=== PATIENT | female | born 1990 | race Caucasian/White ===

== ENCOUNTER → 2019-04-23 | Outpatient (CLI) | payer MEDICAID ==
--- NOTE | 2019-04-23 16:47 | Diagnostic Imaging Report ---
INDICATION: survey. TECHNIQUE: Multiple real-time grayscale images were obtained over the gravid uterus. COMPARISON: None. FINDINGS: There is a single live fetus in a transverse presentation, head to the maternal right. Heart rate was recorded at 140 BPM. Placenta is anterior. There appears to be complete placenta previa at this time. Amniotic fluid volume is normal. Cervical length is 6.3 cm. The kidneys, bladder, and stomach are unremarkable. The brain is unremarkable. There is a four-chamber heart. There is a three-vessel cord with normal insertion. The spine is unremarkable. Biometrical measurements are as follows: Biparietal 4.27 cm, age 19 weeks 0 days. Head circumference 15.52 cm, age 18 weeks 4 days. Abdominal circumference 12.98 cm, age 18 weeks 4 days. Femur length 3.17 cm, age 19 weeks 6 days. Sonographic estimate age: 19 weeks 0 days. Sonographic estimated date of delivery: 09/17/19. Estimated Weight: 273 gm (+/- 40 gm). LMP percentile: 20%. heart rate: 140 beats per minute. number: 1 of 1. IMPRESSION: Single live IUP of 19 weeks 0 days gestational age with estimated date of confinement sonographically of 09/17/2019. No abnormalities are seen. Note is made of complete placenta previa. Dictated by: Dictated on workstation # [id number]
== END ==
LOC: RAD 15:11
PROVIDERS: ATTEND Nurse Practitioner Women's Health
DX: Z36.9 Encounter for antenatal screening, unspecified (principal); Z3A.19 19 weeks gestation of pregnancy
CPT/HCPCS: 76805

== ENCOUNTER → 2019-05-15 | Outpatient (CLI) | payer MEDICAID ==
--- NOTE | 2019-05-15 15:41 | Diagnostic Imaging Report ---
INDICATION: Complete placenta previa. TECHNIQUE: Multiple real-time grayscale images were obtained over the gravid uterus. COMPARISON: 04/23/2019. FINDINGS: There is a single live fetus in a cephalic presentation. heart rate was recorded at 140 bpm. Placenta is anterior. Placental tip is approximate 5.8 cm from the internal cervical os. No previa is seen on today's study. Amniotic fluid volume appears to be unremarkable. IMPRESSION: No evidence of placenta previa on today's study. Dictated by: Dictated on workstation # [id number]
== END ==
LOC: RAD 13:50
PROVIDERS: ATTEND Obstetrics & Gynecology
DX: O44.02 Complete placenta previa NOS or without hemorrhage, second trimester (principal); Z98.891 History of uterine scar from previous surgery
CPT/HCPCS: 76816

== ENCOUNTER → 2019-07-25 | Outpatient (CLI) | payer MEDICAID ==
--- NOTE | 2019-07-25 11:24 | Diagnostic Imaging Report ---
INDICATION: Gestational diabetes. TECHNIQUE: Multiple real-time grayscale images were obtained over the gravid uterus. COMPARISON: 05/15/2019. FINDINGS: There is a single live fetus in a cephalic presentation. heart rate was recorded at 136 bpm. Placenta is anterior. Amniotic fluid index is 19.7 cm. A biophysical profile was performed with normal score of 8 out of 8. Biometrical measurements are as follows: Biparietal 8.66 cm, age 35 weeks 0 days. Head circumference 29.87 cm, age 33 weeks 1 days. Abdominal circumference 28.94 cm, age 33 weeks 0 days. Femur length 6.41 cm, age 33 weeks 1 days. Sonographic estimate age: 33 weeks 4 days. Sonographic estimated date of delivery: 09/08/2019. Estimated Weight: 2138 gm (+/- 312 gm). LMP percentile: 51%. heart rate: 136 beats per minute. number: 1 of 1. IMPRESSION: Single live IUP approximately 33-34 weeks gestational age demonstrating normal interval growth when compared with prior exam. No complicating features are detected. Dictated by: Dictated on workstation # [id number]
== END ==
LOC: RAD 10:09
PROVIDERS: ATTEND Obstetrics & Gynecology
DX: O24.410 Gestational diabetes mellitus in pregnancy, diet controlled (principal); Z3A.33 33 weeks gestation of pregnancy
CPT/HCPCS: 76805; 76819

== ENCOUNTER 2019-09-03 05:41 | Outpatient (RCR) | payer MEDICAID ==
[~2019-09-03] VITALS: Ht 149.9 cm; Wt 85.0 kg
[~2019-09-03 05:41] MED LIST: METF-397 PO; PNV1TABL81 PO
[2019-09-06] MEDS ORDERED: OXYC5TAB96 PO (16:42)
[2019-09-06] MEDS ORDERED: IBUP-844 PO (16:42)
[2019-09-06] MEDS ORDERED: ACET-93 PO (16:42)
[2019-09-06] MEDS ORDERED: FERR-84 PO (16:42)
== END 2019-09-03 10:34 | disposition home or self-care (01) ==
LOC: PREOP 05:41
PROVIDERS: ATTEND Obstetrics & Gynecology
DX: Z01.812 Encounter for preprocedural laboratory examination (principal); Z20.828 Contact with and (suspected) exposure to other viral communicable diseases
CPT/HCPCS: 87635

== ENCOUNTER 2019-09-06 04:03 | Inpatient (IN) | payer MEDICAID ==
[2019-09-06] VITALS (10 sets, daily range): BP systolic 95–129; BP diastolic 57–67
[~2019-09-06] VITALS: Ht 147.3 cm; Wt 87.1 kg
[~2019-09-06 04:03] MED LIST changes: +CITRIC ACID/SOB CIT (BICITRA) 30 ML UDC ONE; +FAMOTIDINE 20MG/2ML IV (PEPCID) ONE; +METOCLOPRAMIDE INJ 10 MG/2 ML (REGLAN) ONE; +WATER (STERILE) FOR INJECTION 10 ML ONE; +ceFAZolin INJECTION 1,000 MG ONE
[2019-09-06] MEDS ORDERED: LACTATED RINGERS 1,000 ML IV PRN (06:28)
[2019-09-06] MEDS ORDERED: CATHETER FLUSH 10 ML SYR IV PRN (06:30)
[2019-09-06] MEDS ORDERED: ceFAZolin INJECTION 1,000 MG in WATER (STERILE) FOR INJECTION 10 ML IV ONE (06:30)
[2019-09-06] MEDS ORDERED: METOCLOPRAMIDE INJ 10 MG/2 ML (REGLAN) IV ONE (06:30)
[2019-09-06] MEDS ORDERED: FAMOTIDINE 20MG/2ML IV (PEPCID) IV ONE (06:30)
[2019-09-06] MEDS ORDERED: CITRIC ACID/SOB CIT (BICITRA) 30 ML UDC PO ONE (06:30)
--- NOTE | 2019-09-06 06:31 | NUR ---
MATEO GAONA presented to unit via ambulation from ED, accompanied by SO, with c/o REPEAT SECTION. MATEO GAONA weighed, gowned, voided, and to bed. EFHM and TOCO applied, VS taken. MATEO GAONA oriented to bed controls, call light, TV, heat, and A/C controls.
[2019-09-06] MEDS ORDERED: OXYTOCIN PRE-MIX DRIP 1,000 ML IV ONE (06:44)
[2019-09-06] MEDS ORDERED: fentaNYL INJECTION 100 MCG/2 ML AMP ONE (06:44)
[2019-09-06] MEDS ORDERED: BUPIVACAINE 0.5% 30 ML (SENSORCAINE) VIAL ONE ×2 (06:45)
[2019-09-06] MEDS ORDERED: BUPIVACAINE 0.25% 30 ML (SENSORCAINE) VIAL ONE (06:46)
[2019-09-06] MEDS: LACTATED RINGERS 1,000 ML IV PRN ×2 (06:53→07:56)
[2019-09-06] MEDS ORDERED: KETOROLAC 30 MG/ML VIAL ONE (06:54)
[2019-09-06] MEDS ORDERED: ONDANSETRON 4 MG/2 ML (SDV) Z0FRAN ONE (06:54)
[2019-09-06 06:58] LABS: BASOPHILS % (AUTO) 0 % (0-10); EOSINOPHILS # (AUTO) 0.1 10^3/uL (0.0-0.3); EOSINOPHILS % (AUTO) 2 % (0-10); HEMATOCRIT 30 % (35-52); HEMOGLOBIN 9.7 G/DL (11.5-16.0); LYMPHOCYTES # (AUTO) 1.7 X 10^3 (1.0-4.0); LYMPHOCYTES % (AUTO) 24 % (12-44); MEAN CORPUSCULAR HEMOGLOBIN 28 PG (25-34); MEAN CORPUSCULAR HGB CONC 32 G/DL (32-36); MEAN CORPUSCULAR VOLUME 86 FL (80-99); MEAN PLATELET VOLUME 12.4 FL (7.4-10.4); MONOCYTES # (AUTO) 0.7 X 10^3 (0.0-1.0); MONOCYTES % (AUTO) 10 % (0-12); NEUTROPHILS # (AUTO) 4.6 X 10^3 (1.8-7.8); NEUTROPHILS % (AUTO) 64 % (42-75); PLATELET COUNT 187 10^3/uL (130-400); RED CELL DISTRIBUTION WIDTH 14.8 % (10.0-14.5); WHITE BLOOD COUNT 7.1 10^3/uL (4.3-11.0)
--- NOTE | 2019-09-06 07:16 | History & Physical-OB ---
OB - Chief Complaint & HPI Date/Time Date of Admission: Date of Admission: Sep 06, 2019 at 06:14 Date seen by a Provider: Sep 06, 2019 Time Seen by a Provider: 07:00 Chief Complaint/History OB-Reason for Admission/Chief: Section Hx : 3 Hx Para: 2 Expected Date of Delivery: Sep 13, 2019 Gestational Age in Weeks: 39 Gestational Age in Days: 0 Indication for : desires repeat , other (Gestational diabetes, A2) Admission Nurse Assessment Rev: Yes History of Labs O+/- Rub I VDRL NR Hep B/C - HIV - GBS + Peds - Elana Other Routine care GDM A2 - fastings elevated for metformin. Controlled with metformin testing has been wnl. Growth adequate Allergies and Home Medications Allergies Coded Allergies: No Known Drug Allergies (Unverified , 08/29/19) Home Medications Metformin HCl 500 Mg Tablet, 500 MG PO BID, (Reported) Pnv No.122/Iron/Folic Acid 1 Each Tablet, 1 EACH PO DAILY, (Reported) Patient Home Medication List Home Medication List Reviewed: Yes OB - History Hx of Present Ultrasounds: Normal mid trimester US Obstetrical Complications: Gestational Diabetes Medical Complications: None Information Induced Hypertension: No Maternal Gestational Diabetes: Yes (Metformin) Hemorrhage: No Obstetrical History Hx : 3 Hx Para: 2 Hx # Term Pregnancies: 2 Hx # Pregnancies: 0 Number of Living Children: 2 Hx Multiple Gestation: No Hx Ectopic : No Hx Stillbirth: No Hx Complication: No Hx Induced Hypertens: No Hx Maternal Gestational Diabet: No Hx Hemorrhage: No Delivery History Hx Dystocia: No Hx Forceps Assisted Delivery: No Hx Vacuum Extraction Assisted: No Hx Placenta Abnormality: No Hx Distress: Yes (Caused first CS) Hx Large For Gestational Age I: No Hx Small for Gestational Age I: No Hx Section: Yes Hx Vaginal Delivery Post C-Sec: No Hx Blood Disorders: No Adverse Rxn to Tranfusion: No Patient Past Medical History NC Social History/Family History Alcohol Use: Denies Use Recreational Drug Use: No Smoking Cessation: Never smoker Significant Family Hx diabetes Immunizations Hepatitis A: No Hepatitis B: Yes Tetanus Booster (TDap): Less than 5yrs (06/20/2019) Rubella: immune RPR/VDRL: Negative GBS Status: Positive HBsAG: Negative OB - Admission Exam Physical Exam Vitals: Vital Signs 09/06/19 09/06/19 06:56 06:59 Temp 36.9 Pulse 95 Resp 18 B/P (MAP) 129/67 (87) Pulse Ox 98 O2 Delivery Room Air HEENT: NCAT Heart: Rhythm Normal Lungs: Clear Abdomen: Gravid Extremities: Edema (2+) Cervical Dilatation: other (declined) Membranes: Intact Heart Rate: 140's Accelerations: Accelerations Present Decelerations: No Decelerations Short Term Variability: Present Penitentiary Variability: Average (6-25) Contractions on Admission: >10 Minutes Apart Labs Laboratory Tests Test 09/06/19 06:35 09/06/19 06:55 Range/Units White Blood Count 7.1 4.3-11.0 10^3/uL Red Blood Count 3.51 L 4.35-5.85 10^6/uL Hemoglobin 9.7 L 11.5-16.0 G/DL Hematocrit 30 L 35-52 % Mean Corpuscular Volume 86 80-99 FL Mean Corpuscular Hemoglobin 28 25-34 PG Mean Corpuscular Hemoglobin Concent 32 32-36 G/DL Red Cell Distribution Width 14.8 H 10.0-14.5 % Platelet Count 187 130-400 10^3/uL Mean Platelet Volume 12.4 H 7.4-10.4 FL Neutrophils (%) (Auto) 64 42-75 % Lymphocytes (%) (Auto) 24 12-44 % Monocytes (%) (Auto) 10 0-12 % Eosinophils (%) (Auto) 2 0-10 % Basophils (%) (Auto) 0 0-10 % Neutrophils # (Auto) 4.6 1.8-7.8 X 10^3 Lymphocytes # (Auto) 1.7 1.0-4.0 X 10^3 Monocytes # (Auto) 0.7 0.0-1.0 X 10^3 Eosinophils # (Auto) 0.1 0.0-0.3 10^3/uL Basophils # (Auto) 0.0 0.0-0.1 10^3/uL Glucose Level 87 70-105 MG/DL OB - Assessment/Plan/Diagnosis Assessment Assessment: section Admission Dx . section 39 weeks gestational diabetes A2 Admission Status: Inpatient Order (span 2 midnights) (post op section) Reason for Inpatient Admission: section Plan Plan: Section Other Plan Risk of bleeding, infection, injury to bowel bladder and ureter. Consents have been signed. Prophylactic antibiotics and SCDs Peds - KEHINDE Isaac DO Sep 06, 2019 07:16
--- OUTSIDE RECORDS SUMMARY | 2019-09-06 07:36 | XMS REPORT | Continuity of Care Document ---
Author Organization Unknown Address Unknown Phone Unavailable Allergies Active Description Code Type Severity Reaction Onset Reported/Identified Relationship to Patient Clinical Status Yes No Known Drug Allergies [id number] Drug Allergy Unknown N/A 08/29/2019 Medications There is no data. Problems Date Dx Coded Attending Type Code Diagnosis Diagnosed By 04/24/2019 BRENDA VALLE APRN Ot Z36.9 ENCOUNTER FOR SCREENING, UNSPE 04/24/2019 BRENDA VALLE NEW MEDIA STRATEGIST Ot Z3A.19 19 WEEKS GESTATION OF 05/16/2019 WHIT STERN DOA C Ot O44.0 2 COMPLETE PLACENTA PREVIA NOS OR WITHOUT 05/16/2019 STERN DO, KEHINDE C Ot Z98.8 91 HISTORY OF UTERINE SCAR FROM PREVIOUS BULLOCK 06/04/2019 STERN DO, KEHINDE C Ot O44.0 2 COMPLETE PLACENTA PREVIA NOS OR WITHOUT 06/04/2019 STERN DO, KEHINDE C Ot Z98.8 91 HISTORY OF UTERINE SCAR FROM PREVIOUS BULLOCK 07/26/2019 LEENA HODGE, KEHINDE C Ot O24.4 10 GESTATIONAL DIABETES MELLITUS IN PREGNAN 07/26/2019 LEENA HODGE, KEHINDE C Ot Z3A.3 3 33 WEEKS GESTATION OF 07/31/2019 LEENA HODGE KEHINDE C Ot O24.4 10 GESTATIONAL DIABETES MELLITUS IN PREGNAN 07/31/2019 STERN DO KEHINDE C Ot Z3A.3 3 33 WEEKS GESTATION OF Procedures There is no data. Results Test Result Range Coronavirus SARS-CoV-2 SO 2018 - 0 07:45 Coronavirus Ab [Units/volume] in Serum Negative Negative Serum or plasma glucose measurement (mas s/volume) - 09/06/19 06:55 Serum or plasma glucose measurement (mass/volume) 87 mg/dL 70-105 Encounters ACCT No. Visit Date/Time Discharge Status Pt. Type Provider Facility Loc./Unit Complaint [id number] 09/03/2019 05:41:00 020 10:34:00 DIS Outpatient KEHINDE STERN DO [facility] PREOP REPEAT [id number] 07/25/2019 10:09:00 23:59:59 CLS Outpatient KEHINDE STERN DO [facility] RAD GDM,29 WEEKS GESTATION OF [id number] 05/15/2019 13:50:00 23:59:59 CLS Outpatient KEHINDE STERN DO [facility] RAD PREVIOUS SECTI ON [id number] 04/23/2019 15:11:00 23:59:59 CLS Outpatient BRENDA VALLE APRN [facility] RAD [id number] 09/06/2019 07:30:00 P EN Preadmit KEHINDE STERN DO R EPEAT SECTION
[2019-09-06 07:46] LABS: BILIRUBIN,URINE NEGATIVE (NEGATIVE); CLARITY,URINE CLEAR; COLOR,URINE YELLOW; GLUCOSE, URINE (UA) NEGATIVE (NEGATIVE); KETONES,URINE NEGATIVE (NEGATIVE); LEUKOCYTE ESTERASE ,URINE 2+ (NEGATIVE); NITRITE,URINE NEGATIVE (NEGATIVE); PROTEIN,URINE NEGATIVE (NEGATIVE)
[2019-09-06 07:56] LABS: BACTERIA,URINE FEW /HPF
[2019-09-06] MEDS ORDERED: PHENYLEPHRINE 100 MCG/ML 10 ML (ANESTHESIA) SYR ONE (08:36)
[2019-09-06] MEDS ORDERED: OXYTOCIN PRE-MIX DRIP 500 ML IV SCH (08:36)
--- NOTE | 2019-09-06 08:36 | Cesarean Section Operative ---
Procedure Procedure Note Pre-operative Diagnosis: Macy Zimmer is a 30 /Para 3 / 2, Gestational Age 39 weeks with gestational diabetes, A2; previous section Post-operative Diagnosis: same; omental adhesions, left tubal adhesion Procedure: Repeat low transverse section Physician: KEHINDE STERN Estimated blood loss: 350 mL Disposition: stable Findings: Viable male infant, Apgars 8/9, weight 7#5ounces, intact placenta, 3vc, normal appearing uterus, tubes, and ovaries. Indications:Macy Zimmer is a30 /Para 3 / 2,Gestational Age 39 weeks with gestational diabetes, A2; previous section Procedure Details: The patient was seen in pre-op and the procedure was discussed with the patient in full, including the risks, benefits, and alternatives. All questions were answered. The patient was taken to the operating room and a time out was performed, verifying patient and procedure. After spinal anesthesia was placed by our anesthesia colleagues, the patient was placed in the dorsal supine with leftward tilt for uterine displacement.~ Her abdomen was then prepped and draped in the typical sterile fashion. A Pfannenstiel skin incision was made using a scalpel and carried down through the underlying fascia. The fascia was incised in the midline and tented up using Maria Guadalupe clamps. There was omentum advanced through the rectus muscles through the midline and adherent to the fascia. On both the inferior and superior fascia side the rectus muscle was dissected off bluntly and sharply using Hanley scissors. the Omental adhesions were dissected off in a sharp fashion. One this was completed, the peritoneum was identified and entered bluntly in the midline. This was then stretched laterally using manual strength. After entering the abdominal cavity and confirming lack of further intraperitoneal adhesions, a large Beni retractor was placed and the lower uterine segment was visualized. The bladder flap was advanced over the lower uterine segment and the previous u terine incision was noted to have a uterine window along this entire incision. This was approximately 6 cm in length and approximately 1 cm in height. I took down the previous bladder flap with the use of Metzenbaum scissors.~ A scalpel was utilized to make a low transverse uterine incision. Amniotomy was performed with an Allis clamp with return of copious amounts of clear fluid. The infant's head was grasped and brought to the level of the incision. This was assisted with the use of a silastic suction. Fundal pressure was applied and infant was delivered without difficulty. Mouth and nares were suctioned with bulb suction. After the umbilical cord was clamped and cut, the was handed off to the pediatric staff. A sample of cord blood was then obtained. The placenta was delivered intact via uterine massage. The uterus was cleared of all clots and debris. The uterine incision was closed using 0 Vicryl in a running locked fashion. A second imbricated layer was placed using 0 Vicryl in a running fashion as well. The bilateral tubes and ovaries appeared normal. however the isthmus portion of the left tube was adherent to the left side of the uterus. I gently dissected this off of the lower uterine area with metzenbaum scissors. The uterus was cleared of all clots and debris. A final check of the uterine incision showed it to be hemostatic. The peritoneum was closed using 3-0 Vicryl in a running fashion. The fascia was closed with 0 Vicryl in a running fashion. The subcutaneous space was hemostatic, and ir rigated. The subcutaneous space was closed with 0 plain in several single interrupted stitches. The skin was then closed using 4-0 Monocryl in a running subcuticular fashion. The skin edges were reapproximated together and were hemostatic. A pressure dressing was applied. All sponge, lap and needle counts were correct at the end of the procedure per nursing. Vitals - Labs Vital Signs - I&O Vital Signs Date Time Temp Pulse Resp B/P (MAP) Pulse Ox O2 Delivery O2 Flow Rate FiO2 09/06/19 06:59 36.9 95 18 98 Room Air 09/06/19 06:56 36.9 95 18 129/67 (87) 98 Room Air Labs Laboratory Tests 09/06/19 06:35: Urine Color YELLOW, Urine Clarity CLEAR, Urine pH 6.0, Urine Specific [place] 1.025H, Urine Protein NEGATIVE, Urine Glucose (UA) NEGATIVE, Urine Ketones NEGATIVE, Urine Nitrite NEGATIVE, Urine Bilirubin NEGATIVE, Urine Urobilinogen 1.0, Urine Leukocyte Esterase 2+H, Urine RBC (Auto) NEGATIVE, Urine RBC NONE, Urine WBC 10-25H, Urine Squamous Epithelial Cells 10-25H, Urine Crystals NONE, Urine Bacteria FEWH, Urine Casts NONE, Urine Mucus SMALLH, Urine Culture Indicated YES 09/06/19 06:55: White Blood Count 7.1, Red Blood Count 3.51L, Hemoglobin 9.7L, Hematocrit 30L, Mean Corpuscular Volume 86, Mean Corpuscular Hemoglobin 28, Mean Corpuscular Hemoglobin Concent 32, Red Cell Distribution Width 14.8H, Platelet Count 187, Mean Platelet Volume 12.4H, Neutrophils (%) (Auto) 64, Lymphocytes (%) (Auto) 24, Monocytes (%) (Auto) 10, Eosinophils (%) (Auto) 2, Basophils (%) (Auto) 0, Neutrophils # (Auto) 4.6, Lymphocytes # (Auto) 1.7, Monocytes # (Auto) 0.7, Eosinophils # (Auto) 0.1, Basophils # (Auto) 0.0, Glucose Level 87 KEHINDE STERN DO Sep 06, 2019 08:36
[2019-09-06] MEDS ORDERED: morphine INJ 4 MG/ML 1 ML (VIAL/SYRINGE) IVP PRN (08:45)
[2019-09-06] MEDS ORDERED: TETANUS,DIPTH,PERTUSS P/F (BOOSTRIX) 0.5 ML VIAL IM SCH (08:45)
[2019-09-06] MEDS ORDERED: SIMETHICONE 80 MG (MYLICON) CHEW PO PRN (08:45)
[2019-09-06] MEDS ORDERED: MEASLES,MUMPS,RUBELLA 1 EA INJ SC SCH (08:45)
[2019-09-06] MEDS ORDERED: ONDANSETRON 4 MG/2 ML (SDV) Z0FRAN IV PRN (09:15)
[2019-09-06] MEDS ORDERED: METOCLOPRAMIDE INJ 10 MG/2 ML (REGLAN) IV PRN (09:15)
[2019-09-06] MEDS ORDERED: NALOXONE 0.4 MG/ML 1 ML (NARCAN) VIAL IV PRN ×2 (09:15)
[2019-09-06] MEDS ORDERED: diphenhydrAMINE 50 MG/ML INJ (BENADRYL) IV PRN (09:15)
--- NOTE | 2019-09-06 13:03 | NUR ---
IV saline locked.
[2019-09-06] MEDS: CATHETER FLUSH 10 ML SYR IV SCH (14:00)
[2019-09-06] MEDS: KETOROLAC 30 MG/ML VIAL IV SCH ×3 (15:29→23:56)
[2019-09-06] MEDS: ACETAMINOPHEN 500 MG TAB (TYLENOL) PO SCH (15:29)
[2019-09-06] MEDS ORDERED: ACET-93 PO (16:42)
[2019-09-06] MEDS ORDERED: FERR-84 PO (16:42)
[2019-09-06] MEDS ORDERED: IBUP-844 PO (16:42)
[2019-09-06] MEDS ORDERED: OXYC5TAB96 PO (16:42)
--- NOTE | 2019-09-06 16:46 | Discharge Inst-Women's Service ---
Discharge Inst-Women's Serv Depart Medication/Instructions Instructions Rx transmitted and on chart Nothing in vagina for 6 weeks, no lifting over 25 lbs no driving for 1 week Final Diagnosis previous section gestational diabetes, A2 antepartum and acute blood loss anemia Problems Reviewed?: Yes Consults/Follow Up Additional Follow Up: Yes (1 week with Shira for incision check; 6 week pp exam) Activity Activity: Activity as Tolerated Driving Instructions: No Driving for 1 Week NO SMOKING: NO SMOKING Nothing Inside Vagina: No Douching, No [place], No Tampons Diet Discharge Diet: No Restrictions Symptoms to Report to : Swelling Increased, Bleeding Excessive, Pain Increased, Fever Over 101 Degrees F, Vaginal Bleeding Increase, Cramps in Feet or Legs, Vaginal Discharge Foul For Any Problems or Questions: Contact Your Physician Skin/Wound Care Infection Signs and Symptoms: Increased Redness, Foul Odor of Wound, Increased Drainage, Skin Itchy or Has a Rash, Increased Swelling, Temperature Above 101 F Operative Area Clean and Dry: Keep Incision Clean/Dry Stitches/[place]/Dermabond: Dermabond Bathing Instructions: KEHINDE Gardiner DO Sep 06, 2019 16:46
[2019-09-06] MEDS: DOCUSATE SODIUM 100 MG (COLACE) CAP PO SCH ×2 (21:34→23:56)
[2019-09-07] MEDS: ACETAMINOPHEN 500 MG TAB (TYLENOL) PO SCH ×3 (00:26→16:40)
[2019-09-07 00:28] VITALS: BP 113/59
[2019-09-07] MEDS: CATHETER FLUSH 10 ML SYR IV SCH (00:28)
[2019-09-07] MEDS: KETOROLAC 30 MG/ML VIAL IV SCH (03:30)
[2019-09-07] MEDS ORDERED: IBUPROFEN 600 MG (MOTRIN) TAB PO ONE (04:40)
[2019-09-07] MEDS: IBUPROFEN 600 MG (MOTRIN) TAB PO SCH ×3 (04:50→16:40)
[2019-09-07 05:00] VITALS: BP 114/67
[2019-09-07 05:29] LABS: BASOPHILS % (AUTO) 0 % (0-10); EOSINOPHILS # (AUTO) 0.2 10^3/uL (0.0-0.3); EOSINOPHILS % (AUTO) 2 % (0-10); HEMATOCRIT 28 % (35-52); LYMPHOCYTES # (AUTO) 1.3 X 10^3 (1.0-4.0); LYMPHOCYTES % (AUTO) 16 % (12-44); MEAN CORPUSCULAR HEMOGLOBIN 28 PG (25-34); MEAN CORPUSCULAR HGB CONC 32 G/DL (32-36); MEAN CORPUSCULAR VOLUME 87 FL (80-99); MEAN PLATELET VOLUME 12.6 FL (7.4-10.4); MONOCYTES # (AUTO) 0.6 X 10^3 (0.0-1.0); MONOCYTES % (AUTO) 8 % (0-12); NEUTROPHILS # (AUTO) 6.1 X 10^3 (1.8-7.8); NEUTROPHILS % (AUTO) 75 % (42-75); PLATELET COUNT 155 10^3/uL (130-400); RED CELL DISTRIBUTION WIDTH 15.1 % (10.0-14.5); WHITE BLOOD COUNT 8.1 10^3/uL (4.3-11.0)
--- NOTE | 2019-09-07 08:03 | Postpartum Progress Note ---
KEYSHAWN GOODWIN,MED STUDENT 09/07/19 0803: Note Note Day # 1 Subjective: Patient is without complaints. Ambulating, voiding. Tolerating a regular diet without nausea or vomiting. Normal lochia. Pain is well controlled with oral pain medications. Objective: Physical Exam: General - Alert and oriented, no apparent distress Abdomen - Soft, appropriately tender to palpation, non-distended, fundus firm at umbilicus Extremities - no edema, negative Yuval's bilaterally Incision - clean/dry/intact Assessment: Post- day # 1, repeat section POD 1 Gestational Hypertension Plan: Routine care. Encourage breast feeding. Encourage ambulation. Plan for discharge tomorrow Vitals - Labs Vital Signs - I&O Vital Signs Date Time Temp Pulse Resp B/P (MAP) Pulse Ox O2 Delivery O2 Flow Rate FiO2 09/07/19 05:00 36.6 94 20 114/67 (83) Room Air 09/07/19 00:28 36.6 78 20 113/59 (77) 96 Room Air 09/06/19 20:30 36.5 94 18 113/61 (78) 94 Room Air 09/06/19 15:25 36.6 88 20 115/63 (80) Room Air 09/06/19 13:20 36.6 92 20 99/60 (73) Room Air 09/06/19 10:46 96 Room Air 09/06/19 10:15 36.3 75 18 101/57 (72) 96 Room Air 09/06/19 09:29 Room Air 09/06/19 09:27 36.2 20 95/66 (76) 94 Room Air 09/06/19 09:15 Room Air 09/06/19 09:14 36.2 20 99/63 (75) 97 Room Air 09/06/19 08:58 36.2 20 100/64 (76) 96 Room Air 09/06/19 08:57 Room Air 09/06/19 08:42 Room Air 09/06/19 08:42 36.1 20 104/59 (74) 100 Room Air I & O 09/07/19 07:00 Intake Total 1000 ml Output Total 35 ml Balance 965 ml Labs Laboratory Tests 09/07/19 04:51: Glucometer 84 09/07/19 05:01: White Blood Count 8.1, Red Blood Count 3.26L, Hemoglobin 9.0L, Hematocrit 28L, Mean Corpuscular Volume 87, Mean Corpuscular Hemoglobin 28, Mean Corpuscular Hemoglobin Concent 32, Red Cell Distribution Width 15.1H, Platelet Count 155, Mean Platelet Volume 12.6H, Neutrophils (%) (Auto) 75, Lymphocytes (%) (Auto) 16, Monocytes (%) (Auto) 8, Eosinophils (%) (Auto) 2, Basophils (%) (Auto) 0, Neutrophils # (Auto) 6.1, Lymphocytes # (Auto) 1.3, Monocytes # (Auto) 0.6, Eosinophils # (Auto) 0.2, Basophils # (Auto) 0.0 RENETTA ROSADO DO 09/08/19 0810: Note Note GHTN documented in error Diagnosis: POD 1 RLTCS Acute blood loss anemia Verification and Attestation of Medical Student E/M Service A medical student performed and documented this service in my presence. I reviewed and verified all information documented by the medical student and made modifications to such information, when appropriate. I personally performed the physical exam and medical decision making. Renetta Rosado, Sep 08, 2019,08:09 KEYSHAWN GOODWIN,MED STUDENT Sep 07, 2019 08:03 RENETTA ROSADO DO Sep 08, 2019 08:10
[2019-09-07] MEDS: DOCUSATE SODIUM 100 MG (COLACE) CAP PO SCH ×2 (08:15→19:46)
[2019-09-07 08:16] VITALS: BP 110/67
--- NOTE | 2019-09-07 12:26 | Anesthesia-Regional Post-Op ---
Regional Patient Condition Mental Status: Alert, Oriented x3 Circulation: Same as Pre-Op Headache: Absent Sensation: Full Recovery Motor Block: Absent Post Op Complications Complications None Follow Up Care/Instructions Patient Instructions None needed. Anesthesia/Patient Condition Patient is doing well, no complaints, stable vital signs, no apparent adverse anesthesia problems. No complications reported per nursing. TG WONG CRNA Sep 07, 2019 12:26
[2019-09-07 16:38] VITALS: BP 99/63
[2019-09-07 21:00] VITALS: BP 116/66
[2019-09-08] MEDS: IBUPROFEN 600 MG (MOTRIN) TAB PO SCH ×2 (00:15→06:14)
[2019-09-08 04:00] VITALS: BP 114/59
[2019-09-08] MEDS: ACETAMINOPHEN 500 MG TAB (TYLENOL) PO SCH (04:13)
--- NOTE | 2019-09-08 08:59 | Postpartum Progress Note ---
Note Note Day # 2 Subjective: Patient is without complaints. Ambulating, voiding. Tolerating a regular diet without nausea or vomiting. Normal lochia. Pain is well controlled with oral pain medications. Objective: Physical Exam: General - Alert and oriented, no apparent distress Abdomen - Soft, appropriately tender to palpation, non-distended, fundus firm at umbilicus Extremities - no edema, negative Yuval's bilaterally Incision- c/d/i Assessment: POD 2 RLTCS Acute blood loss anemia Plan: Routine care. Encourage breast feeding. Encourage ambulation. Ferrous sulfate supplementation. Plan for discharge today Vitals - Labs Vital Signs - I&O Vital Signs Date Time Temp Pulse Resp B/P (MAP) Pulse Ox O2 Delivery O2 Flow Rate FiO2 09/08/19 04:00 36.6 74 18 114/59 (77) 95 09/07/19 21:00 36.8 83 18 116/66 (83) 09/07/19 16:38 36.5 84 20 99/63 (75) Room Air Labs Microbiology 09/06/19 Urine Culture - Preliminary, Resulted Escherichia coli RENETTA ROSADO DO Sep 08, 2019 08:59
[2019-09-08] MEDS: DOCUSATE SODIUM 100 MG (COLACE) CAP PO SCH (09:32)
[2019-09-08 11:05] VITALS: BP 110/62
[2019-09-08] MEDS ORDERED: FERROUS SULF 325 MG (IRON) TAB PO SCH (18:00)
== END 2019-09-08 12:08 | disposition home or self-care (01) | DRG 787 ==
LOC: LDRP 06:14
PROVIDERS: ADMIT Obstetrics & Gynecology; ATTEND Obstetrics & Gynecology
PROC: 10D00Z1 Extraction of Products of Conception, Low, Open Approach (ICD-10-PCS; principal; 2019-09-06 07:23)
DX: O24.425 Gestational diabetes mellitus in childbirth, controlled by oral hypoglycemic drugs (principal); D62 Acute posthemorrhagic anemia; O90.81 Anemia of the puerperium; O13.4 Gestational [pregnancy-induced] hypertension without significant proteinuria, complicating childbirth; O34.211 Maternal care for low transverse scar from previous cesarean delivery; O99.824 Streptococcus B carrier state complicating childbirth; Z3A.39 39 weeks gestation of pregnancy; Z37.0 Single live birth; Z79.84 Long term (current) use of oral hypoglycemic drugs
CPT/HCPCS: 36415; 81000; 82947; 82962; 85025; 86850; 86900; 86901; 87077; 87088; 87186; 94664; 94760